=== PATIENT | female | born 1985 | race Caucasian/White ===

== ENCOUNTER → 2024-09-30 07:36 | Outpatient (REF) | payer BC, SELFPAY | LOC: HWEVLT 07:36 | PROVIDERS: ATTENDING PHYSICIAN Radiology Vascular & Interventional Radiology | DX: I83.893 Varicose veins of bilateral lower extremities with other complications (principal) | CPT/HCPCS: 93970 ==

== ENCOUNTER → 2024-10-22 07:45 | Outpatient (REF) | payer BC, SELFPAY | LOC: HWEVLT 07:45 | PROVIDERS: ATTENDING PHYSICIAN Radiology Diagnostic Radiology | DX: I83.891 Varicose veins of right lower extremity with other complications (principal) | CPT/HCPCS: 36478; C1769 ==

== ENCOUNTER → 2024-10-28 08:04 | Outpatient (REF) | payer BC, SELFPAY | LOC: HWEVLT 08:04 | PROVIDERS: ATTENDING PHYSICIAN Radiology Diagnostic Radiology | DX: I83.891 Varicose veins of right lower extremity with other complications (principal) | CPT/HCPCS: 93971 ==

== ENCOUNTER → 2024-12-18 09:58 | Outpatient (REF) | payer BC, SELFPAY | LOC: HWEVLT 09:58 | PROVIDERS: ATTENDING PHYSICIAN Radiology Diagnostic Radiology | DX: I83.892 Varicose veins of left lower extremity with other complications (principal) | CPT/HCPCS: 36478; C1769 ==

== ENCOUNTER → 2025-01-01 13:04 | Outpatient (REF) | payer BC, SELFPAY | LOC: HWEVLT 13:04 | PROVIDERS: ATTENDING PHYSICIAN Radiology Diagnostic Radiology | DX: I83.892 Varicose veins of left lower extremity with other complications (principal) | CPT/HCPCS: 93971 ==